=== PATIENT | male | born 2005 | race Two or more races ===

== ENCOUNTER 2024-12-26 18:26 | Emergency (ER) | payer OTHER, BC ==
[~2024-12-26] VITALS: Ht 162.6 cm; Wt 63.5 kg
[2024-12-26] MEDS ORDERED: TDAP [DIPH/PERTUSSIS/TET] 0.5 ML VIAL IM ONE (19:35)
[2024-12-26] MEDS ORDERED: LIDOCAINE /MPF 1% VIAL 5 ML VIAL ONE (19:37)
[2024-12-26] MEDS: TDAP [DIPH/PERTUSSIS/TET] 0.5 ML VIAL IM ONE (19:42)
[2024-12-26] MEDS: LIDOCAINE /MPF 1% VIAL 5 ML VIAL IJ ONE (19:43)
[2024-12-26 21:23] VITALS: BP 115/54; TEMP 98.6; O2SAT 98
== END 2024-12-26 21:24 | disposition home or self-care (01) ==
LOC: ER 18:33
DX: S01.01XA Laceration without foreign body of scalp, initial encounter (principal); R51.9 Headache, unspecified; Z60.2 Problems related to living alone; V43.52XA Car driver injured in collision with other type car in traffic accident, initial encounter; Y93.89 Activity, other specified; Y92.415 Exit ramp or entrance ramp of street or highway as the place of occurrence of the external cause; Y99.8 Other external cause status
CPT/HCPCS: 12002; 70450; 72125; 90471; 90715; 99285; J3490

== ENCOUNTER 2025-01-04 12:15 | Emergency (ER) | payer OTHER, BC ==
[~2025-01-04] VITALS: Ht 170.2 cm; Wt 63.5 kg
[2025-01-04 12:37] VITALS: BP 124/62; TEMP 98
[2025-01-04 12:52] VITALS: O2SAT 99
== END 2025-01-04 12:52 | disposition home or self-care (01) ==
LOC: ER 12:18
DX: S01.91XD Laceration without foreign body of unspecified part of head, subsequent encounter (principal); Z48.02 Encounter for removal of sutures; W18.30XD Fall on same level, unspecified, subsequent encounter